=== PATIENT | female | born 1995 | race Caucasian/White ===

== ENCOUNTER 2019-06-18 01:49 | Inpatient (IN) ==
[~2019-06-18 01:49] MED LIST: CeFAZolin Premix DUPLEX 2,000 MG/50 ML BAG IVPB ONE; FLU Vac QV 19-20 (6Month+)/PF 0.5 ML SYRINGE IM ONE; Famotidine 20 MG/2 ML VIAL IVP ONE; Metoclopramide 10 MG/2 ML VIAL IVP ONE; Ringers Solution, Lactated 0 ML ONE; Ringers Solution, Lactated 1,000 ML ONE
[2019-06-18] MEDS ORDERED: *HR* Morphine Sulfate/PF 10 MG/10 ML AMPUL ONE (01:52)
[2019-06-18] MEDS ORDERED: *HR* OxyCODONE/APAP 5/325 TABLET PO PRN (01:52)
[2019-06-18] MEDS ORDERED: Acetaminophen IV 1,000 MG/100 ML INFUS..BTL IVPB ONE (01:52)
[2019-06-18] MEDS ORDERED: *HR* FentaNYL (PF) 100 MCG/2 ML VIAL ONE (01:52)
[2019-06-18] MEDS ORDERED: EPHEDrine 50 MG/ML VIAL ONE (01:52)
[2019-06-18] MEDS ORDERED: Water for inj. (sterile) 10 ML ONE (01:52)
[2019-06-18] MEDS ORDERED: Ibuprofen 400 MG TABLET PO PRN (01:52)
[2019-06-18] MEDS ORDERED: *HR* Oxytocin 10 UNIT/ML VIAL IM ONE ×2 (01:52→02:59)
[2019-06-18] MEDS ORDERED: Ondansetron 4 MG/2 ML VIAL IVP PRN ×2 (01:52→05:31)
[2019-06-18] MEDS ORDERED: Ringers Solution, Lactated 1,000 ML IVC SCH (02:00)
[2019-06-18 02:07] LABS: Basophils # 0.1 K/mcL (0.0-0.2); Basophils % 0.3 %; Eosinophils # 0.2 K/mcL (0.0-0.6); Eosinophils % 1.3 %; Hematocrit 35.5 % (35.3-44.9); Hemoglobin 12.2 g/dL (11.5-15.4); Immature Granulocytes % 0.5 % (0-4); Lymphocytes # 2.8 K/mcL (0.6-4.6); Lymphocytes % 16.2 %; Mean Corpuscular HGB Conc 34.4 g/dL (31.6-35.5); Mean Corpuscular Hemoglobin 29.7 pg (28.0-33.3); Mean Corpuscular Volume 86.4 fL (83.0-100.0); Mean Platelet Volume 11.1 fL (9.4-12.4); Monocytes # 1.2 K/mcL (0.0-1.3); Monocytes % 7.1 %; Neutrophils # 12.8 K/mcL (1.6-8.9); Platelet Count 271 K/mcL (140-400); Red Blood Count 4.11 M/mcL (3.82-4.97); Red Cell Distribution Width 13.6 % (11.5-14.5); Segmented Neutrophils % 74.6 %; White Blood Count 17.2 K/mcL (4.3-11.1)
[2019-06-18 02:16] LABS: Amphetamine Screen,Urine Negative ng/mL (Cutoff=1000); Barbiturate Screen,Urine Negative ng/mL (Cutoff=200); Benzodiazepines Screen,Urine Negative ng/mL (Cutoff=200); Cannabinoid Screen,Urine Negative ng/mL (Cutoff = 50); Cocaine Screen,Urine Negative ng/mL (Cutoff= 300); Opiate Screen,Urine Negative ng/mL (Cutoff=300); Phencyclidine Screen,Urine Negative ng/mL (Cutoff=25)
[2019-06-18] MEDS ORDERED: Ringers Solution, Lactated 1,000 ML ONE ×3 (02:20→07:08)
[2019-06-18] MEDS ORDERED: Oxytocin 20 units/ LR 1000 mL 20 UNIT/1,000 ML BAG IVC SCH ×2 (05:31)
[2019-06-18] MEDS ORDERED: *HR* OxyCODONE Immed Rel 5 MG TABLET PO PRN (05:31)
[2019-06-18] MEDS ORDERED: Sennosides 8.6 MG TABLET PO PRN (05:31)
[2019-06-18] MEDS ORDERED: Metoclopramide 10 MG/2 ML VIAL IVP PRN (05:31)
[2019-06-18] MEDS ORDERED: Rho Immune Globulin 1,500 UNIT SYRINGE IM ONE (05:31)
[2019-06-18] MEDS ORDERED: 0.9 % Sodium Chloride 1,000 ML IVC SCH (05:31)
[2019-06-18] MEDS: Ibuprofen 600 MG TABLET PO PRN ×2 (06:51→19:33)
[2019-06-18] MEDS ORDERED: Oxytocin 20 units/ LR 1000 mL 20 UNIT/1,000 ML BAG IVC ONE (07:09)
[2019-06-18] MEDS ORDERED: Methylergonovine 0.2 MG/ML AMPUL IM ONE (09:56)
[2019-06-19] MEDS: Ibuprofen 600 MG TABLET PO PRN ×3 (02:15→18:56)
[2019-06-19] MEDS: *HR* OxyCODONE/APAP 5/325 TABLET PO PRN ×3 (06:20→20:20)
[2019-06-19] MEDS: Prenatal Vit/FA 1 EACH TABLET PO SCH (08:15)
[2019-06-19] MEDS: Simethicone 80 MG TAB.CHEW PO PRN ×2 (08:31→15:39)
[2019-06-19 16:54] LABS: Basophils % 0.2 %; Eosinophils # 0.2 K/mcL (0.0-0.6); Eosinophils % 1.5 %; Hematocrit 32.6 % (35.3-44.9); Immature Granulocytes % 0.4 % (0-4); Lymphocytes # 2.1 K/mcL (0.6-4.6); Lymphocytes % 14.7 %; Mean Corpuscular HGB Conc 31.9 g/dL (31.6-35.5); Mean Corpuscular Hemoglobin 29.4 pg (28.0-33.3); Mean Corpuscular Volume 92.1 fL (83.0-100.0); Mean Platelet Volume 11.2 fL (9.4-12.4); Monocytes # 1.1 K/mcL (0.0-1.3); Monocytes % 7.6 %; Platelet Count 257 K/mcL (140-400); Red Blood Count 3.54 M/mcL (3.82-4.97); Red Cell Distribution Width 13.9 % (11.5-14.5); Segmented Neutrophils % 75.6 %; White Blood Count 14.5 K/mcL (4.3-11.1)
[2019-06-19 16:55] LABS: Hemoglobin 10.4 g/dL (11.5-15.4)
[2019-06-20] MEDS: Ibuprofen 600 MG TABLET PO PRN ×3 (03:16→16:43)
[2019-06-20] MEDS: *HR* OxyCODONE/APAP 5/325 TABLET PO PRN ×4 (03:35→21:44)
[2019-06-20] MEDS: Simethicone 80 MG TAB.CHEW PO PRN (08:54)
[2019-06-20] MEDS: Prenatal Vit/FA 1 EACH TABLET PO SCH (08:54)
[2019-06-21] MEDS: *HR* OxyCODONE/APAP 5/325 TABLET PO PRN ×2 (04:46→09:26)
[2019-06-21] MEDS: Ibuprofen 600 MG TABLET PO PRN (04:46)
[2019-06-21 08:13] VITALS: BP 116/66
[2019-06-21] MEDS: Prenatal Vit/FA 1 EACH TABLET PO SCH (09:23)
[2019-06-21] MEDS ORDERED: FLU Vac QV 19-20 (6Month+)/PF 0.5 ML SYRINGE IM ONE (11:19)
== END 2019-06-21 13:44 | disposition home or self-care (01) | DRG 540 ==
LOC: 1NENULAB → 1NENUOBS 06:22
PROVIDERS: ADMIT Advanced Practice Midwife; ATTEND Advanced Practice Midwife